=== PATIENT | male | born 1980 | race Caucasian/White ===

== ENCOUNTER 2024-04-16 19:58 | Emergency (ER) | payer OTHER, SELFPAY ==
[2024-04-16 20:03] VITALS: BP 150/85; PULSE 75; RESP 16; TEMP 37.2; O2SAT 97; BMI 31.3
[2024-04-16 21:05] LABS: Adenovirus Not Detected (Not Detect); B. parapertussis Not Detected (Not Detecte); Bordetella pertussis Not Detected (Not Detect); Chlamydophila pneumoniae Not Detected (Not Detect); Coronavirus 229E Not Detected (Not Detect); Coronavirus HKU1 Not Detected (Not Detect); Coronavirus NL 63 Not Detected (Not Detect); Coronavirus OC43 Not Detected (Not Detect); Human Metapneumovirus Not Detected (Not Detect); Human Rhinovirus/Enterovirus Not Detected (Not Detect); Influenza A Not Detected (Not Detect); Influenza B Not Detected (Not Detect); Mycoplasma pneumoniae Not Detected (Not Detect); Parainfluenza Virus 1 Not Detected (Not Detect); Parainfluenza Virus 2 Not Detected (Not Detect); Parainfluenza Virus 3 Not Detected (Not Detect); Parainfluenza Virus 4 Not Detected (Not Detect); Respiratory Syncytial Virus Not Detected (Not Detect); SARS- CoV-2 Not Detected (Not Detecte)
[2024-04-16 21:13] VITALS: O2SAT 97
[2024-04-16 21:14] VITALS: BP 136/83; PULSE 65; O2SAT 98
--- NOTE | 2024-04-16 21:18 | DI.RAD.S_ITS ---
PROCEDURE: XR CHEST 2V INDICATIONS: SOB/Cough x 10 days TECHNIQUE: 2 views of the chest were acquired. COMPARISON: None. FINDINGS: Surgical changes and devices: None. Lungs and pleura: Pulmonary vascular congestion is seen. No definite focal infiltrate. No pleural effusions or pneumothorax. Mediastinum: Mediastinal contours are normal. Heart size is normal. Bones and chest wall: No suspicious bony abnormalities. Soft tissues appear unremarkable. IMPRESSION: Mild congestion. No definite focal infiltrate, pleural effusion or pneumothorax. Dictated by: Geoffrey Kirk M.D. on 04/16/2024 at 21:39 Approved by: Geoffrey Kirk M.D. on 04/16/2024 at 21:40
[2024-04-16 21:31] VITALS: PULSE 96
[2024-04-16 21:32] VITALS: BP 131/63; PULSE 97; O2SAT 96
--- NOTE | 2024-04-16 21:40 | ED_ITS ---
HPI - URI/Sore Throat General Chief Complaint: Upper Respiratory Symptoms Stated Complaint: cough T-14/poss popped rib Time Seen by Provider: 04/16/24 21:39 Source: patient Mode of arrival: Family Vehicle History of Present Illness HPI Narrative: 43-year-old male with 2 weeks' duration of cough, dry, recent cough cold symptoms other family members noted, has not tried any specific treatments, no longer feels feverish since early illness. No history of lung disease, asthma, heart problems. Denies chest pain. He also denies any headache, neck pain, no longer having any sore throat pain since early in the illness. He denies abdom inal pain, nausea vomiting, diarrhea. Related Data Previous Rx's Medication Instructions Recorded albuterol sulfate 90 mcg/actuation 2 puff inhalation Q6H PRN 04/16/24 aerosol inhaler shortness of breath or wheezing #8.5 grams prednisone 20 mg tablet 40 mg (2 x 20 mg) PO DAILY 5 days 04/16/24 #10 tabs Allergies Allergy/AdvReac Type Severity Reaction Status Date / Time No Known Drug Allergies Allergy Verified 04/16/24 20:35 Review of Systems Review of Systems Narrative: per HPI Exam Narrative Exam Narrative: GENERAL: Well-developed patient, in mild distress. HEAD: Atraumatic. Normocephalic. EYES: Pupils equal round and reactive. Extraocular motions intact. No scleral icterus. No injection or drainage. ENT: Nose without bleeding, purulent drainage. Throat without erythema, tonsillar hypertrophy or exudate. Airway patent. NECK: Trachea midline. Non tender CARDIOVASCULAR: Regular rate and rhythm without murmurs, gallops, or rubs. RESPIRATORY: End expiratory wheezes bilaterally, no retractions, no crackles, no suprasternal retractions. Speaks in full sentences. GASTROINTESTINAL: Abdomen soft, non-tender, nondistended. EXTREMITIES: No edema or joint tenderness. BACK: Nontender without deformity or crepitance. No flank tenderness. NEURO: AOx3. SKIN: No rash or erythema of visible areas Initial Vital Signs Initial Vital Signs: Vital Signs Temperature 98.9 F 04/16/24 20:03 Pulse Rate 75 04/16/24 20:03 Respiratory Rate 16 04/16/24 20:03 Blood Pressure 150/85 H 04/16/24 20:03 Pulse Oximetry 97 04/16/24 20:03 Oxygen Delivery Method Room Air 04/16/24 20:03 Course Orders Ordered: Discontinued Medications Albuterol (Albuterol 2.5 Mg/3 Ml Neb (Adult)) 2.5 mg INH NOW ONE Stop: 04/16/24 21:40 Last Admin: 04/16/24 21:50 Dose: 2.5 mg Documented By: AB Prednisone (Prednisone 20 Mg Tablet) 60 mg PO NOW ONE Stop: 04/16/24 21:45 Last Admin: 04/16/24 21:49 Dose: 60 mg Documented By: AB Vital Signs Vital signs: Vital Signs - 8 hr 04/16/24 20:03 04/16/24 21:13 04/16/24 21:14 Temperature 98.9 F Pulse Rate 75 65 Respiratory Rate 16 Blood Pressure 150/85 H Pulse Oximetry 97 97 98 Oxygen Delivery Method Room Air 04/16/24 21:14 04/16/24 21:31 04/16/24 21:32 Temperature Pulse Rate 96 H 97 H Respiratory Rate Blood Pressure 136/83 Pulse Oximetry 96 Oxygen Delivery Method 04/16/24 21:32 04/16/24 22:00 04/16/24 22:00 Temperature Pulse Rate 78 Respiratory Rate Blood Pressure 131/63 141/67 H Pulse Oximetry 97 Oxygen Delivery Method MDM - URI/Sore Throat Lab Data Attestation: I reviewed the patient's lab results. Labs: Lab Results 04/16/24 Range/Units 20:10 Chlamy pneumoniae PCR Not detected (Not Detect) Adenovirus (PCR) Not detected (Not Detect) B.parapertussis DNA PCR Not detected (Not Detecte) Coronavirus OC43 (PCR) Not detected (Not Detect) Coronavirus HKU1 (PCR) Not detected (Not Detect) Coronavirus 229E (PCR) Not detected (Not Detect) SARS-CoV-2 (PCR) Not detected (Not Detecte) Coronavirus NL63 (PCR) Not detected (Not Detect) Human Metapneumovir PCR Not detected (Not Detect) Influenza Type A (PCR) Not detected (Not Detect) Influenza Type B (PCR) Not detected (Not Detect) M. pneumoniae (PCR) Not detected (Not Detect) Parainfluenza 1 (PCR) Not detected (Not Detect) Parainfluenza 2 (PCR) Not detected (Not Detect) Parainfluenza 3 (PCR) Not detected (Not Detect) Parainfluenza 4 (PCR) Not detected (Not Detect) RSV (PCR) Not detected (Not Detect) Entero/Rhino (PCR) Not detected (Not Detect) MDM Narrative Medical decision making narrative: 43-year-old male with recent cough, wheezing on exam noted, no oxygen requirement, no respiratory distress, p.o. prednisone, albuterol SVN, improved symptoms. CXR negative, Resp panel negative. Discharged on albuterol MDI with spacer, prednisone pulse. Follow up with PCP advised on Friday. Improved, stable, home with family. Return precautions discussed Discharge Plan Departure Patient Disposition: Home Clinical Impression: Upper respiratory infection, Reactive airway disease Prescriptions: New albuterol sulfate 90 mcg/actuation HFA aerosol inhaler 2 puff inhalation Q6H PRN (Reason: shortness of breath or wheezing) Qty: 8.5 0RF prednisone 20 mg tablet 40 mg PO DAILY 5 Days Qty: 10 0RF Referrals: ProviderRosa [Primary Care Provider] - Stand Alone Forms: Patient Portal/API
[2024-04-16] MEDS: predniSONE 20 MG TABLET 60 MG PO (21:49)
[2024-04-16] MEDS: ALBUTEROL 2.5 MG/3 ML NEB (ADULT) INH (21:50)
[2024-04-16 22:00] VITALS: BP 141/67; PULSE 78; O2SAT 97
--- NOTE | 2024-04-16 22:16 | PC.NURSE ---
Educated pt on use of spacer verbally. 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
== END 2024-04-16 22:25 | disposition home or self-care (01) ==
PROVIDERS: Emergency Provider Emergency Medicine
DX: J06.9 Acute upper respiratory infection, unspecified (principal); J45.909 Unspecified asthma, uncomplicated; Z11.52 Encounter for screening for COVID-19
CPT/HCPCS: 71046; 87633; 99283; 99284; J7613